=== PATIENT | female | born 1970 | race Caucasian/White ===

== ENCOUNTER 2020-08-29 16:18 | Outpatient (REF) | payer BC, SELFPAY ==
--- NOTE | ~2020-08-29 | MM_ITS ---
EXAMINATION: MM SCREENING DIGITAL BREAST TOMOSYNTHESIS, BILATERAL CLINICAL INFORMATION: History focal left DCIS 2009. Due for yearly exam. COMPARISON: Mammography: 07/04/2019, 05/24/2018, and prior studies dating back to 11/21/2009 TECHNIQUE: Digital breast tomosynthesis is performed in both the craniocaudal and mediolateral oblique views along with computer-aided detection (CAD). Synthesized 2D images are generated from the tomosynthesis. FINDINGS: There are scattered areas of fibroglandular density (ACR BI-RADS breast composition Category b). The right breast is unremarkable. There is no developing density or interval mass or architectural abnormality. Again, there is incidental intramammary node posterior upper outer quadrant. Neither breast shows abnormal calcifications. The axilla and skin contours are unremarkable. The left CC view has asymmetric density posterior outer quadrant, 12.4 cm from nipple. Over time, there is involution/decreased density of the adjacent tissue and this finding may represent incompletely compressed remaining fibroglandular tissue. Patient will be recalled to further characterize. MM/MM tomosynthesis screening BI IMPRESSION: 1. Left: Asymmetric density posterior outer left breast on CC view, possibly incompletely compressed glandular tissue. 2. Right: No mammographic evidence of malignancy. ASSESSMENT: BI-RADS 0: Incomplete - Need Additional Imaging Evaluation RECOMMENDATION: 1. Additional views of the left breast (3-D rolled CC x2, 3-D spot CC). 2. Targeted ultrasound if warranted after review of the additional views. 3. Radiology department staff will contact the patient for additional imaging. This patient's information was entered into a reminder system with a target due date for their next mammogram.
== END 2020-08-29 16:19 | disposition home or self-care (01) ==
LOC: HO.MAMMO 16:18
PROVIDERS: Visit Provider Internal Medicine
DX: Z12.31 Encounter for screening mammogram for malignant neoplasm of breast (principal)
CPT/HCPCS: 77063; 77067

== ENCOUNTER 2021-03-24 23:54 | Emergency (ER) | payer BC, SELFPAY ==
[2021-03-25 03:09] VITALS: BP 154/94; PULSE 129; RESP 20; TEMP 36.9; O2SAT 98; BMI 25.9
--- NOTE | 2021-03-25 03:15 | ECG_ITS ---
Test Reason : UTI Blood Pressure : / mmHG Vent. Rate : 096 BPM Atrial Rate : 096 BPM P-R Int : 158 ms QRS Dur : 072 ms QT Int : 346 ms P-R-T Axes : 074 039 052 degrees QTc Int : 437 ms Normal sinus rhythm Possible Left atrial enlargement Borderline ECG No previous ECGs available Referred By: Charlene Vogel Electronically Signed By:PAULO ISAAC
[2021-03-25 03:54] LABS: Appearance Urine HAZY; Color Urine ORANGE; Glucose Urine UA 100 MG/DL (NEG); Leukocyte Esterase Urine TRACE (NEG); Nitrite Urine POS (NEG); PH 5.5 (5.0-8.0); Specific Gravity - Urine 1.015 (1.005-1.025); UACC Culture Trigger YES; Urine Blood NEG (NEG); Urine Ketones NEG (NEG); Urine Protein 1+ MG/DL (NEG-TRACE)
[2021-03-25 04:02] LABS: Bacteria Urine TRACE /LPF; Mucus Urine 1+ /LPF; RBC Urine 0 /HPF (0); Squamous Epithelial Cell Urine 2+ /LPF
--- NOTE | 2021-03-25 04:09 | ED.GENADULT ---
HPI - General Adult General Chief complaint: General Medical Stated complaint: UTI Time Seen by Provider: 03/25/21 03:15 Source: patient Mode of arrival: ambulatory History of Present Illness HPI narrative: 51-year-old female presents with significant urethral pain and burning and states that she was seen earlier by urgent care and diagnosed with the UTI for which she has taken pyridium as well as the prescribed antibiotics, but states that the pain has not improved. Otherwise, patient has no acute complaints of fever, chills, nausea, vomiting. Related Data Home Medications Medication Instructions Recorded Confirmed estradiol 10 mcg vaginal tablet 10 mcg VAGINAL 2XW 11/08/20 11/08/20 (Yuvafem) nitrofurantoin 1 cap PO DAILY PRN 11/08/20 11/08/20 monohydrate/macrocrystals 100 mg capsule omeprazole 20 mg capsule,delayed 20 mg PO DAILY 11/08/20 11/08/20 release Previous Rx's Medication Instructions Recorded cholecalciferol (vitamin D3) 50 50 mcg PO DAILY #90 cap 07/20/20 mcg (2,000 unit) capsule acetic acid solution 5% #30 ml 10/31/20 amitriptyline 75 mg tablet 75 mg PO BEDTIME #90 tab 03/19/21 Allergies Allergy/AdvReac Type Severity Reaction Status Date / Time No Known Allergies Allergy Verified 03/25/21 03:08 [No Known Allergies*] Erythromycin AdvReac Unknown GI upset Verified 03/25/21 03:08 Review of Systems Review of Systems: Pertinent positives and negatives as stated in HPI 10 point review of systems is otherwise negative. PMFSH Past Medical History Source: nursing notes reviewed Medical History Generalized anxiety disorder Surgical History Hx of breast biopsy Hx of tonsillectomy Hx of wisdom tooth extraction Family History Family History Father History of vitamin D deficiency H/O mental disorder Hx of anxiety disorder Family history of dyslipidemia Mother Hx of anxiety disorder H/O mental disorder Social History Social History Alcohol intake: never Advance Directives: No Advance Directives Information Provided: Yes Patient : No Physical Exam Vital Signs: Vital Signs: Last Vital Signs Temp 98.4 F 03/25/21 03:09 Pulse 129 H 03/25/21 03:09 Resp 20 03/25/21 03:09 BP 154/94 H 03/25/21 03:09 Pulse Ox 98 03/25/21 03:09 Body Mass Index 25.9 VITAL SIGNS: Reviewed. GENERAL: Well developed, well nourished, in no acute distress. HEAD: Normocephalic/atraumatic EYES: PERRLA, EOMI OROPHARYNX: no oral lesions noted, posterior pharynx clear. No adventitious sounds or accessory muscle use. SpO2<98> CARDIOVASCULAR: Regular rate and rhythm without noted murmurs ABDOMEN: Soft, non-tender, non-distended with bowel sounds. : [Primary [place]] evaluation shows significant erythema and irritation at both the enteritis as well as periurethral, but otherwise no vesicles/ulcerations/evidence to suggest yeast infection NEUROLOGIC: Alert and oriented x 4. Strength and sensation to light touch were grossly intact x 4. Course Course Course Narrative: 51-year-old female with history and clinical presentation consistent with likely UTI and on clinical exam the appearance characteristic of vaginal dryness likely contributing to patient's significant discomfort. Low clinical suspicion for STI. Patient received IV fluids, antibiotics, pain medication and was counseled on vaginal dryness. Medical Decision Making Lab Data Labs: Lab Results 03/25/21 Range/Units 03:35 Urine Color ORANGE Urine Appearance HAZY Urine pH 5.5 (5.0-8.0) Ur Specific [place] 1.015 (1.005-1.025) Urine Protein 1+ H (NEG-TRACE) MG/DL Urine Glucose (UA) 100 H (NEG) MG/DL Urine Ketones NEG (NEG) MG/DL Urine Blood NEG (NEG) Urine Nitrite POS H (NEG) Ur Leukocyte Esterase TRACE H (NEG) Urine RBC 0 (0) /HPF Urine WBC 5-9 H (0-4) /HPF Ur Squamous Epith Cells 2+ /LPF Urine Bacteria TRACE /LPF Urine Mucus 1+ /LPF ECG Data Attestation: I personally reviewed and interpreted this ECG as follows: Prior ECG tracings: not available for review Interpretation: Normal sinus rhythm, HR-96, no STEMI, HI/QRS/QTC are within normal limits. Discharge Plan Discharge Clinical Impression: UTI (urinary tract infection), Vaginal dryness Patient Disposition: Home, Self-Care Instructions: Urinary Tract Infection in Women (ED) Additional Instructions: 1. Resume all medications as prescribed. 2. Recommend Replens? for vaginal dryness 3. Follow-up with your primary care provider in the next 1-2 days. Return to the ER for acute worsening of symptoms. Prescriptions: No Action cholecalciferol (vitamin D3) 50 mcg (2,000 unit) capsule 50 mcg PO DAILY Qty: 90 RF: 5 (DME) acetic acid solution 5% See Rx Instructions .Route .MEDSUPPLY Qty: 30 RF: 0 amitriptyline 75 mg tablet 75 mg PO BEDTIME Qty: 90 RF: 0 omeprazole 20 mg capsule,delayed release(DR/EC) 20 mg PO DAILY RF: 0 nitrofurantoin monohyd/m-cryst 100 mg capsule 1 cap PO DAILY PRNRF: 0 estradiol [Yuvafem] 10 mcg tablet 10 mcg vaginal 2XW RF: 0 Referrals: Michelle Dsouza MD [Primary Care Provider] - 2 days
[2021-03-25] MEDS: Acetaminophen 325 MG TABLET 975 MG PO (05:25)
[2021-03-25] MEDS: Ketorolac Tromethamine 15 MG/ML VIAL IVPUSH (05:26)
[2021-03-25] MEDS: cefTRIAXone sodium 1 GM in 0.9 % Sodium Chloride 50 ML IV (05:26)
== END 2021-03-25 07:07 | disposition home or self-care (01) ==
PROVIDERS: Emergency Provider Student in an Organized Health Care Education/Training Program; PCP Internal Medicine
DX: N39.0 Urinary tract infection, site not specified (principal); N89.8 Other specified noninflammatory disorders of vagina; Z79.899 Other long term (current) drug therapy
CPT/HCPCS: 81001; 87040; 87086; 93005; 96365; 96375; 99284; J0696; J1885

== ENCOUNTER 2021-03-25 16:53 | Outpatient (REF) | payer BC, SELFPAY ==
[2021-03-26 14:11] LABS: Appearance Urine CLEAR; Color Urine YELLOW; Glucose Urine UA NEG (NEG); Leukocyte Esterase Urine TRACE (NEG); Nitrite Urine POS (NEG); UACC Culture Trigger YES; Urine Blood NEG (NEG); Urine Ketones NEG (NEG); Urine Protein NEG (NEG-TRACE)
[2021-03-26 14:43] LABS: RBC Urine 0-2 /HPF (0); Squamous Epithelial Cell Urine TRACE /LPF
== END 2021-03-25 16:54 | disposition home or self-care (01) ==
LOC: HO.LAB 16:53
PROVIDERS: Visit Provider Internal Medicine
DX: N39.0 Urinary tract infection, site not specified (principal)
CPT/HCPCS: 81001; 81003

== ENCOUNTER 2021-03-27 10:03 | Emergency (ER) | payer BC, SELFPAY ==
--- NOTE | ~2021-03-27 | US_ITS ---
EXAMINATION: US PELVIS CLINICAL INFORMATION: Pain. Rule out torsion. COMPARISON: None TECHNIQUE: Ultrasound of the pelvis is performed using both transabdominal and transvaginal transducers along with Doppler. Transvaginal imaging is performed due to inadequate visualization transabdominally. FINDINGS: Uterus: The uterus is retroverted and measures 7.6 x 2.4 x 3.9 cm. The double wall endometrial thickness is 0.8 mm. The uterus is smooth in contour and has normal myometrial echogenicity. There are 2 hypoechoic lesions suggestive of fibroids measuring 0.8 x 0.6 x 0.8 cm in the left uterine body and 0.7 x 0.5 x 0.7 cm in the left fundus. Adnexa: Both ovaries are visualized. There is normal color flow to the adnexa. There is no ovarian torsion. There is no ascites. Right ovary measures 1.6 x 0.9 x 1.4 cm. Left ovary measures 1.6 x 1.1 x 1.9 cm. US/US pelvic ovarian doppler IMPRESSION: Small uterine fibroids. Normal-appearing ovaries. No evidence of torsion.
--- NOTE | ~2021-03-27 | US_ITS ---
EXAMINATION: US PELVIS CLINICAL INFORMATION: Pain. Rule out torsion. COMPARISON: None TECHNIQUE: Ultrasound of the pelvis is performed using both transabdominal and transvaginal transducers along with Doppler. Transvaginal imaging is performed due to inadequate visualization transabdominally. FINDINGS: Uterus: The uterus is retroverted and measures 7.6 x 2.4 x 3.9 cm. The double wall endometrial thickness is 0.8 mm. The uterus is smooth in contour and has normal myometrial echogenicity. There are 2 hypoechoic lesions suggestive of fibroids measuring 0.8 x 0.6 x 0.8 cm in the left uterine body and 0.7 x 0.5 x 0.7 cm in the left fundus. Adnexa: Both ovaries are visualized. There is normal color flow to the adnexa. There is no ovarian torsion. There is no ascites. Right ovary measures 1.6 x 0.9 x 1.4 cm. Left ovary measures 1.6 x 1.1 x 1.9 cm. US/US transvaginal IMPRESSION: Small uterine fibroids. Normal-appearing ovaries. No evidence of torsion.
[2021-03-27 10:41] VITALS: BP 147/97; PULSE 105; RESP 16; TEMP 37.4; O2SAT 99; BMI 27.8
--- NOTE | 2021-03-27 11:30 | ED_ITS ---
HPI - Female Genitourinary General Chief complaint: Urogenital-Female Stated complaint: vaginal burning & pain Time Seen by Provider: 03/27/21 11:11 History of Present Illness HPI Narrative: Patient is a 51-year-old female presents today with having vaginal pain. There is no discharge. Patient was noted to have a possible urinary tract infection on Thursday. Started on Bactrim. Subsequently the vaginal pain that is localized in the vaginal area did not improve. Patient went to her primary physician had a 2nd exam and then was started on ciprofloxacin. Been on that for 2 days. Patient continued to have the pain. She is postmenopausal. Does not think she is . She is not sexually active. Patient denies any fever chills. No coughing or congestion or upper respiratory symptoms. No pain on urination. Patient's denies any change in bowel movement. Patient went to see urgent care again sent in for a possible ultrasound. Patient from home. Related Data Home Medications Medication Instructions Recorded Confirmed estradiol 10 mcg vaginal tablet 10 mcg VAGINAL 2XW 11/08/20 11/08/20 (Yuvafem) omeprazole 20 mg capsule,delayed 20 mg PO DAILY 11/08/20 11/08/20 release Previous Rx's Medication Instructions Recorded cholecalciferol (vitamin D3) 50 50 mcg PO DAILY #90 cap 07/20/20 mcg (2,000 unit) capsule acetic acid solution 5% #30 ml 10/31/20 amitriptyline 75 mg tablet 75 mg PO BEDTIME #90 tab 03/19/21 ciprofloxacin HCl 500 mg tablet 500 mg PO Q12H #14 tab 03/25/21 clotrimazole-betamethasone 1 1 appl TOPICAL BID #15 g 03/25/21 %-0.05 % topical cream phenazopyridine 99.5 mg tablet 99.5 mg PO TID PRN #6 tab 03/25/21 (Uristat Ultra) lidocaine HCl 4 % topical cream 1 appl TOPICAL BID #30 g 03/26/21 (Aspercreme (lidocaine HCl)) meloxicam 15 mg tablet 15 mg PO DAILY #14 tab 03/26/21 Allergies Allergy/AdvReac Type Severity Reaction Status Date / Time No Known Allergies Allergy Verified 03/26/21 14:19 [No Known Allergies*] Erythromycin AdvReac Unknown GI upset Verified 03/26/21 14:19 Review of Systems Review of Systems: No fever no chills no vomiting no diarrhea All systems reviewed otherwise negative [facility] Past Medical History Attestation statement: The following information was validated with the patient. Medical History Generalized anxiety disorder Surgical History Hx of breast biopsy Hx of tonsillectomy Hx of wisdom tooth extraction Family History Family History Father History of vitamin D deficiency H/O mental disorder Hx of anxiety disorder Family history of dyslipidemia Mother Hx of anxiety disorder H/O mental disorder Social History Social History Alcohol intake: never Advance Directives: No Advance Directives Information Provided: No Patient : No Physical Exam Vital Signs: Vital Signs: Last Vital Signs Temp 99.3 F 03/27/21 10:41 Pulse 101 H 03/27/21 12:27 Resp 16 03/27/21 12:27 BP 141/98 H 03/27/21 12:27 Pulse Ox 99 03/27/21 12:27 Body Mass Index 27.8 Appearance: Alert. Oriented X3. No acute distress. Eyes: Pupils equal, round and reactive to light. ENT: Pharynx normal. Neck: Normal inspection. Neck supple. No lymph nodes noted. No crepitus CVS: Normal heart rate and rhythm. Pulses normal. Normal S1 and S2 Respiratory: No respiratory distress. Breath sounds normal. No Wheezing. No rales Abdomen: Soft and nontender. No rigidity. No distention. good BS x4 Skin: Skin warm and dry. Normal skin color. Normal skin turgor. Exam is of the genitalia done with Nurse Margaret present. There is no gross external lesion noted in the labia majora labia minora. There is no vaginal discharge noted. Extremities: No lower extremity edema. Neurovascular intact to all extremities. No Lacerations. No Rash Neuro: Oriented X 3. No motor deficit. No sensory deficit. Moving all extermities. No slurred speech MDM - Female Genitourinary MDM Narrative Medical decision making narrative: Patient complaining of vaginal pain. White count is normal electrolyte is normal. Patient left prior to full evaluation can be done bladder scan showed postvoid 200 cc no gross retention. Patient had ultrasound done she did not wait for the results but it did not show any evidence of torsion. She has follow-up with OBGYN. She is in stable condition. Lab Data Attestation: I reviewed the patient's lab results. Result diagrams: 03/27/21 11:57 03/27/21 11:57 Labs: Lab Results 03/27/21 03/27/21 03/27/21 Range/Units 11:44 11:45 11:57 WBC 7.4 (4.8-10.8) X10*3/uL RBC 4.81 (4.20-5.50) X10*6/uL Hgb 14.9 (12.0-16.0) g/dl Hct 43.6 (37-47) % MCV 90.6 (80-98) fL MCH 31.0 (27.0-33.0) pg MCHC 34.2 (31.0-35.0) g/dl RDW 12.9 (11.0-16.0) % Plt Count 291 (160-400) X10*3/uL MPV 9.8 (9.4-12.3) fL Immature Gran % (Auto) 0.3 (0.0-0.4) % Neut % (Auto) 68.1 (45-73) % Lymph % (Auto) 24.0 (20-40) % [place] % (Auto) 5.7 (2-11) % Eos % (Auto) 1.2 (0-4) % Baso % (Auto) 0.7 (0-2) % Lymph # (Auto) 1.8 (1.2-4.9) X10*3/uL [place] # (Auto) 0.4 (0.1-1.2) X10*3/uL Eos # (Auto) 0.1 (0.0-0.4) X10*3/uL Baso # (Auto) 0.1 (0.0-0.2) X10*3/uL Abs Immat Gran (auto) 0.02 (0.00-0.03) X10*3/uL Absolute Neuts (auto) 5.0 (2.0-8.3) X10*3/uL Absolute Nucleated RBC 0.000 (0.0-0.012) X10*3/uL Nucleated RBC % (auto) 0.0 (0.0-0.2) /100WBC Sodium (135-145) mmol/L Potassium (3.3-5.1) mmol/L Chloride (96-108) mmol/L Carbon Dioxide (22-29) mmol/L Anion Gap (12-20) BUN (9-16) mg/dL Creatinine (0.5-1.4) mg/dL Estim Creat Clear Calc Estimated GFR Random Glucose (60-115) mg/dL Calcium (8.4-10.2) mg/dL Total Bilirubin (0.0-1.0) mg/dL AST (5-31) U/L ALT (0-31) U/L Alkaline Phosphatase (39-117) U/L Total Protein (6.5-8.0) g/dL Albumin (3.5-5.0) g/dL Urine Color YELLOW Urine Appearance HAZY Urine pH 6.0 (5.0-8.0) Ur Specific [place] 1.010 (1.005-1.025) Urine Protein NEG (NEG-TRACE) MG/DL Urine Glucose (UA) NEG (NEG) MG/DL Urine Ketones NEG (NEG) MG/DL Urine Blood NEG (NEG) Urine Nitrite POS H (NEG) Ur Leukocyte Esterase NEG (NEG) Urine RBC 0 (0) /HPF Urine WBC 1-4 (0-4) /HPF Ur Squamous Epith Cells TRACE /LPF Urine Bacteria TRACE /LPF Chlam trachomat DNA PCR NOT DETECTED (Not Detect.) N.gonorrhoeae DNA (PCR) NOT DETECTED (Not Detect.) 03/27/21 Range/Units 11:57 WBC (4.8-10.8) X10*3/uL RBC (4.20-5.50) X10*6/uL Hgb (12.0-16.0) g/dl Hct (37-47) % MCV (80-98) fL MCH (27.0-33.0) pg MCHC (31.0-35.0) g/dl RDW (11.0-16.0) % Plt Count (160-400) X10*3/uL MPV (9.4-12.3) fL Immature Gran % (Auto) (0.0-0.4) % Neut % (Auto) (45-73) % Lymph % (Auto) (20-40) % [place] % (Auto) (2-11) % Eos % (Auto) (0-4) % Baso % (Auto) (0-2) % Lymph # (Auto) (1.2-4.9) X10*3/uL [place] # (Auto) (0.1-1.2) X10*3/uL Eos # (Auto) (0.0-0.4) X10*3/uL Baso # (Auto) (0.0-0.2) X10*3/uL Abs Immat Gran (auto) (0.00-0.03) X10*3/uL Absolute Neuts (auto) (2.0-8.3) X10*3/uL Absolute Nucleated RBC (0.0-0.012) X10*3/uL Nucleated RBC % (auto) (0.0-0.2) /100WBC Sodium 140 (135-145) mmol/L Potassium 4.0 (3.3-5.1) mmol/L Chloride 107 (96-108) mmol/L Carbon Dioxide 25 (22-29) mmol/L Anion Gap 12 (12-20) BUN 11 (9-16) mg/dL Creatinine 0.89 (0.5-1.4) mg/dL Estim Creat Clear Calc 79.9 Estimated GFR > 60 Random Glucose 108 (60-115) mg/dL Calcium 9.5 (8.4-10.2) mg/dL Total Bilirubin 0.6 (0.0-1.0) mg/dL AST 33 H (5-31) U/L ALT 26 (0-31) U/L Alkaline Phosphatase 108 (39-117) U/L Total Protein 7.1 (6.5-8.0) g/dL Albumin 4.5 (3.5-5.0) g/dL Urine Color Urine Appearance Urine pH (5.0-8.0) Ur Specific [place] (1.005-1.025) Urine Protein (NEG-TRACE) MG/DL Urine Glucose (UA) (NEG) MG/DL Urine Ketones (NEG) MG/DL Urine Blood (NEG) Urine Nitrite (NEG) Ur Leukocyte Esterase (NEG) Urine RBC (0) /HPF Urine WBC (0-4) /HPF Ur Squamous Epith Cells /LPF Urine Bacteria /LPF Chlam trachomat DNA PCR (Not Detect.) N.gonorrhoeae DNA (PCR) (Not Detect.) Discharge Plan Discharge Clinical Impression: Vaginitis Patient Disposition: Elopement Prescriptions: No Action cholecalciferol (vitamin D3) 50 mcg (2,000 unit) capsule 50 mcg PO DAILY Qty: 90 RF: 5 (DME) acetic acid solution 5% See Rx Instructions .Route .MEDSUPPLY Qty: 30 RF: 0 amitriptyline 75 mg tablet 75 mg PO BEDTIME Qty: 90 RF: 0 omeprazole 20 mg capsule,delayed release(DR/EC) 20 mg PO DAILY RF: 0 estradiol [Yuvafem] 10 mcg tablet 10 mcg vaginal 2XW RF: 0 ciprofloxacin HCl 500 mg tablet 500 mg PO Q12H Qty: 14 RF: 0 Uristat Ultra 99.5 mg tablet 99.5 mg PO TID PRN (Reason: cystitis) Qty: 6 RF: 0 clotrimazole-betamethasone 1-0.05 % cream 1 appl topical BID Qty: 15 RF: 0 lidocaine HCl [Aspercreme (lidocaine HCl)] 4 % cream 1 appl topical BID Qty: 30 RF: 0 meloxicam 15 mg tablet 15 mg PO DAILY Qty: 14 RF: 0 Interventions: ED Discharge Assessment Last Done: 03/27/21 12:37 Discharge Date/Time: 03/27/21 12:38
[2021-03-27 11:52] LABS: Appearance Urine HAZY; Color Urine YELLOW; Glucose Urine UA NEG (NEG); Leukocyte Esterase Urine NEG (NEG); Nitrite Urine POS (NEG); UACC Culture Trigger YES; Urine Blood NEG (NEG); Urine Ketones NEG (NEG); Urine Protein NEG (NEG-TRACE)
[2021-03-27 12:02] LABS: Bacteria Urine TRACE /LPF; RBC Urine 0 /HPF (0); Squamous Epithelial Cell Urine TRACE /LPF
[2021-03-27 12:02] LABS: MANUAL DIFF FLAG NO
[2021-03-27 12:07] LABS: Basophils Absolute Auto 0.1 X10*3/uL (0.0-0.2); Basophils Percent Auto 0.7 % (0-2); Eosinophils Absolute Auto 0.1 X10*3/uL (0.0-0.4); Eosinophils Percent Auto 1.2 % (0-4); Hematocrit 43.6 % (37-47); Hemoglobin 14.9 g/dl (12.0-16.0); Imm Gran Abs Auto 0.02 X10*3/uL (0.00-0.03); Imm Gran Pct Auto 0.3 % (0.0-0.4); Lymphocytes Absolute Auto 1.8 X10*3/uL (1.2-4.9); Mean Corpuscular HGB Conc 34.2 g/dl (31.0-35.0); Mean Corpuscular Volume 90.6 fL (80-98); Mean Platelet Volume 9.8 fL (9.4-12.3); Monocytes Absolute Auto 0.4 X10*3/uL (0.1-1.2); Monocytes Percent Auto 5.7 % (2-11); Neutrophils Percent Auto 68.1 % (45-73); Platelet Count 291 X10*3/uL (160-400); Red Blood Count 4.81 X10*6/uL (4.20-5.50); Red Cell Distribution Width 12.9 % (11.0-16.0); White Blood Count 7.4 X10*3/uL (4.8-10.8)
[2021-03-27 12:21] LABS: Alanine Aminotransferase 26 U/L (0-31); Albumin Level 4.5 g/dL (3.5-5.0); Alkaline Phosphatase 108 U/L (39-117); Anion Gap 12 (12-20); Aspartate Amino Transferase 33 U/L (5-31); Bilirubin Total 0.6 mg/dL (0.0-1.0); Blood Urea Nitrogen 11 mg/dL (9-16); Calcium 9.5 mg/dL (8.4-10.2); Carbon Dioxide 25 mmol/L (22-29); Chloride 107 mmol/L (96-108); Creatinine Clr Calc Pharmacy 79.9; Estimated Glomerular Filt Rate > 60; Glucose Random 108 mg/dL (60-115); Sodium 140 mmol/L (135-145); Total Protein 7.1 g/dL (6.5-8.0)
[2021-03-27 12:27] VITALS: BP 141/98; PULSE 101; RESP 16; O2SAT 99
--- NOTE | 2021-03-27 12:28 | PC.NURSE ---
PT IS VERY INDECISIVE, FIRST WANTED TO GO HOME AND FOLLOW UP WITH OBGYN, THEN WANTED TESTING DONE, PT FINALLY DECIDED TO HAVE ULTRASOUND DONE LAB WORK AND URINE TESTING. RETURNED FROM ULTRASOUND AND WANTED TO LEAVE PROVIDER NELSON AWARE. PT KEEPS CALLING WANTING TEST RESULTS HAVE EXPLAINED MULTIPLE TIMES THAT IT CAN TAKE A FEW HOURS FOR TEST RESULTS TO BE READ BY A RADIOLOGIST AND PT STATES SHE WANT TO LEAVE AND WALKED OUT OF THE ER, DR NELSON ALSO AWARE
[2021-03-27 13:48] LABS: CT PCR NOT DETECTED (Not Detect.); NG PCR NOT DETECTED (Not Detect.)
== END 2021-03-27 12:38 | disposition left against medical advice (07) ==
PROVIDERS: Emergency Provider Emergency Medicine Emergency Medical Services; PCP Internal Medicine
DX: N76.0 Acute vaginitis (principal); R30.0 Dysuria; R10.2 Pelvic and perineal pain; Z79.899 Other long term (current) drug therapy
CPT/HCPCS: 36415; 51798; 76830; 80053; 81001; 85025; 87086; 87491; 87591; 93975; 99283

== ENCOUNTER 2022-06-11 15:10 | Outpatient (REF) | payer BC, SELFPAY ==
--- NOTE | ~2022-06-11 | MM_ITS ---
EXAMINATION: MM SCREENING DIGITAL BREAST TOMOSYNTHESIS, BILATERAL CLINICAL INFORMATION: Screening. Asymptomatic. Left lumpectomy for DCIS, 2009. COMPARISON: Mammography: 08/29/2020, 07/04/2019, and multiple prior exams dating back to 2009. TECHNIQUE: Digital breast tomosynthesis is performed in both the craniocaudal and mediolateral oblique views along with computer-aided detection (CAD). Synthesized 2D images are generated from the tomosynthesis. FINDINGS: There are scattered areas of fibroglandular density (ACR BI-RADS breast composition Category b). There is decreased parenchymal density bilateral breasts since prior remote exams. The right breast shows no interval mass or architectural abnormality. Neither breast shows abnormal calcifications. The skin contours are smooth. Left CC has nodular asymmetric density posterior outer breast extending to the posterior film margin on the CC view. There is no appreciable developing density on left MLO view. This is an area previously noted for recall. Patient will be recalled to fully characterize. MM/MM tomosynthesis screening BI IMPRESSION: Left: -Nodular asymmetric density posterior outer left breast on CC view extending to posterior film margin. Right: -No mammographic evidence of malignancy. ASSESSMENT: BI-RADS 0: Incomplete - Need Additional Imaging Evaluation RECOMMENDATION: 1. Additional views of the left breast (spot exaggerated CC, spot MLO). 2. Targeted ultrasound if warranted after review of the additional views. 3. Radiology department staff will contact the patient for additional imaging. This patient's information was entered into a reminder system with a target due date for their next mammogram.
== END 2022-06-11 15:11 | disposition home or self-care (01) ==
LOC: HO.MAMMO 15:10
PROVIDERS: PCP Internal Medicine; Visit Provider Internal Medicine
DX: Z12.31 Encounter for screening mammogram for malignant neoplasm of breast (principal)
CPT/HCPCS: 77063; 77067

== ENCOUNTER 2023-05-29 12:16 | Outpatient (AMB) | payer BC, SELFPAY ==
--- NOTE | 2023-05-29 12:36 | A.OFFPC_ITS ---
<Statement entered by Michelle Dsouza MD - 08/13/25 23:46> This note has been administratively?closed. Vital Signs 05/29/23 12:37 Height 5 ft 7 in Weight 183 lb 2 oz BMI 28.7 BP 138/76 Blood Pressure Location Lt brachial Position Sitting Pulse 90 Pulse Source Pulse Oximeter Pulse Oximetry (%) 98 Oxygen Delivery Method Room Air Intake Visit Reasons: PE Intake Note: pt is here for her PE Allergies erythromycin base Adverse Reaction (Unknown, Verified 05/29/25 10:40) Gastrointestinal Upset Medication List - Last Reconciled 05/29/23 by Michelle Dsouza MD amitriptyline 75 mg PO BEDTIME cholecalciferol (vitamin D3) 50 mcg PO DAILY omeprazole 20 mg PO DAILY Tobacco use date assessed: 05/29/23 Dental Screening Dental Screen Date: 05/29/23 Did you have a dental visit in the last 12 months?: Yes Did you have a dental problem in the last 6 months where you did not have access to dental care?: No Was dental information given to patient?: Patient has dentist HPI PE HPI Details 53-year-old lady here today for her phys ical exam. She is up-to-date with her cervical cancer screening, goes to [facility]. She is due for screening mammogram, has an appointment scheduled for June 17 at [facility]. Declines getting any colon cancer screening test. [facility] Medical History Hypertriglyceridemia History of vitamin D deficiency Heartburn symptom Episodes of decreased attentiveness Generalized anxiety disorder Surgical History Hx of breast biopsy Hx of wisdom tooth extraction Hx of tonsillectomy Family History Father History of vitamin D deficiency H/O mental disorder Hx of anxiety disorder Family history of dyslipidemia Mother Hx of anxiety disorder H/O mental disorder Social History Housing: House Alcohol intake: never Patient Tobacco Use Status: Never used Tobacco e-Cigarette/Vaping Use: Never Used Current occupational status: employed Cognitive needs: No Hearing needs: No Vision needs: Yes Questionnaire PHQ-9 Over the last 2 weeks, how often have you been bothered by any of the following problems? 1. Little interest or pleasure in doing things: not at all 2. Feeling down, depressed, or hopeless: not at all 3. Trouble falling or staying asleep, or sleeping too much: not at all 4. Feeling tired or having little energy: several days 5. Poor appetite or overeating: not at all 6. Feeling bad about yourself - or that you are a failure or have let yourself or your family down: several days 7. Trouble concentrating on things, such as reading the newspaper or watching television: several days 8. Moving or speaking so slowly that other people could have noticed. Or the opposite - being so fidgety or restless that you have been moving around a lot more than usual: not at all 9. Thoughts that you would be better off or of hurting yourself in some way: not at all Total score: 3 Depression Screening Interpretation: Negative Depression Screening Done: Yes 80802 - PHQ-9 Billing: Yes Source: Developed by Drs. Shaquille Downing, Sarah Tian, Danial Norris and colleagues, with an educational murali from [employer]. Thrive Questionnaire Date Thrive assessed: 05/21/22 AUDIT C Alcohol Use Questionnaire (AUDIT-C) 1. How often do you have a drink containing alcohol?: Never Total Score: 0 ANTONIO-7 AMB Questionnaire ANTONIO-7 Date ANTONIO - 7 assessed: 05/21/22 Source: Developed by Drs. Shaquille Downing, Sarah Tian, Danial Norris and colleagues, with an educational murali from [employer]. Physical exam (Primary Care) Vital Signs: Last Vital Signs Pulse 90 05/29/23 12:37 BP 138/76 05/29/23 12:37 Pulse Ox 98 05/29/23 12:37 Oxygen Delivery Method Room Air 05/29/23 12:37 BMI result Body Mass Index 28.7 Tobacco/Smoking Status: Tobacco use Status Tobacco use date assessed 05/29/23 05/29/23 12:41 Patient Tobacco Use Status Never used Tobacco 05/29/23 12:38 e-Cigarette/Vaping Use Never Used 05/29/23 12:38 PHQ-9: PHQ-9 Score PHQ-9: Total score 3 05/29/23 13:31 Depression Screening Interpretation: Negative Thrive Assessment: Date of Thrive Assessment Date Thrive assessed 05/21/22 05/29/23 12:38 Coding Level of Care Code Admin Sign Off/No Billing Diagnoses Heartburn symptom R12 Episodes of decreased attentiveness R68.89 Annual visit for general adult medical examination with abnormal findings Z00.01 History of vitamin D deficiency Z86.39
[2023-05-29 12:37] VITALS: BP 138/76; PULSE 90; O2SAT 98; BMI 28.7
== END 2023-05-29 13:52 | disposition home or self-care (01) ==
PROVIDERS: Visit Provider Internal Medicine
DX: R12 Heartburn (principal); R68.89 Other general symptoms and signs; Z00.01 Encounter for general adult medical examination with abnormal findings; Z86.39 Personal history of other endocrine, nutritional and metabolic disease
CPT/HCPCS: 99499

== ENCOUNTER 2023-07-20 07:42 | Outpatient (REF) | payer BC, SELFPAY ==
--- NOTE | ~2023-07-20 | MM_ITS ---
EXAMINATION: MM SCREENING DIGITAL BREAST TOMOSYNTHESIS, BILATERAL CLINICAL INFORMATION: Screening. Asymptomatic. Left lumpectomy for DCIS in 2009. COMPARISON: Mammography: 06/11/2022, 08/29/2020, 07/04/2019, and multiple prior exams dating back to 2009. TECHNIQUE: Digital breast tomosynthesis is performed in both the craniocaudal and mediolateral oblique views along with computer-aided detection (CAD). Synthesized 2D images are generated from the tomosynthesis. In addition, a 3-D full-field digital left XCC image was obtained. FINDINGS: There are scattered areas of fibroglandular density (ACR BI-RADS breast composition Category b). There is scarring in the inferomedial left breast related to prior lumpectomy. This appears stable. There are no suspicious masses, suspicious grouped calcifications, or areas of architectural distortion in either breast. The parenchymal pattern is stable from prior exams. MM/MM tomosynthesis screening BI IMPRESSION: No mammographic evidence of malignancy. ASSESSMENT: BI-RADS BI-RADS 2 - Benign Findings RECOMMENDATION: Routine annual mammography screening. 1 year F/U This examination should not preclude the clinical evaluation of a suspicious palpable abnormality. This patient's information was entered into a reminder system with a target due date for their next mammogram.
== END 2023-07-20 07:43 | disposition home or self-care (01) ==
LOC: HO.MAMMO 07:42
PROVIDERS: PCP Internal Medicine; Visit Provider Internal Medicine
DX: Z12.31 Encounter for screening mammogram for malignant neoplasm of breast (principal)
CPT/HCPCS: 77063; 77067

== ENCOUNTER → 2023-07-20 07:45 | Outpatient (BNV) | payer BC, SELFPAY | PROVIDERS: PCP Internal Medicine; Visit Provider Radiology Diagnostic Radiology | DX: Z12.31 Encounter for screening mammogram for malignant neoplasm of breast (principal) | CPT/HCPCS: 77063; 77067 ==

== ENCOUNTER 2024-06-01 08:30 | Outpatient (AMB) | payer BC, SELFPAY ==
--- NOTE | 2024-06-01 08:38 | MHC.PC.OV ---
Vital Signs 06/01/24 08:47 Height 5 ft 7 in Weight 177 lb BMI 27.7 BP 122/86 Blood Pressure Location Rt brachial Position Sitting Pulse 93 Pulse Source Pulse Oximeter Pulse Oximetry (%) 97 Oxygen Delivery Method Room Air Intake Visit Reasons: Annual PE Intake Note: Pt is here today for her PE: last mammogram 07/20/23, papsmear 08/28/21, colorguard 05/29/24 Allergies erythromycin base Adverse Reaction (Unknown, Verified 06/01/24 09:08) Gastrointestinal Upset Medication List - Last Reconciled 06/01/24 by Michelle Dsouza MD amitriptyline 75 mg PO BEDTIME cholecalciferol (vitamin D3) 50 mcg PO DAILY omeprazole 20 mg PO DAILY Tobacco use date assessed: 06/01/24 Dental Screening Dental Screen Date: 05/29/23 Did you have a dental visit in the last 12 months?: Yes Did you have a dental problem in the last 6 months where you did not have access to dental care?: Yes Was dental information given to patient?: Patient has dentist HPI Annual PE HPI Details The patient is a 54-year-old female presenting for an annual physical examination. She is up to date with her screening mammogram , sees [facility] Dr. Gia TOLENTINO for her cervical cancer screening and pelvic exam which is done earlier this year per patient. She reports a postmenopausal status since the age of 46. During this time, she has experienced occasional episodes of feeling overheated but denies significant symptoms disrupting her daily life. The patient has been actively managing her weight and has sdone earlier this year and een a reduction from 183 lbs to 177 lbs over the past year through regular exercise, although she notes some limitation due to prior back injuries. She reports a history of anxiety for which she takes amitriptyline primarily to aid with sleep. She denies experiencing any interruptions in her sleep regimen. Additionally, she has a known adverse reaction to erythromycin characterized by rash development. The patient notes a desire to address her varicose veins but currently is not experiencing any symptomatic discomfort from them. - Mammogram was normal, last completed in September of last year. - Has received COVID-19 vaccinations flu vaccine in the past but does not want to get further vaccines, declines Tdap was but has completed her shingles vaccines - Osteoporosis prevention is ongoing with Vitamin D supplementation and regular exercise. - Colonoscopy screening has been discussed and ordered. - Blood work including CBC, electrolytes, and liver function tests performed in 2020 were normal. [facility] Medical History History of vitamin D deficiency Heartburn symptom Episodes of decreased attentiveness Generalized anxiety disorder Surgical History Hx of breast biopsy Hx of wisdom tooth extraction Hx of tonsillectomy Family History Father History of vitamin D deficiency H/O mental disorder Hx of anxiety disorder Family history of dyslipidemia Mother Hx of anxiety disorder H/O mental disorder Social History Housing: House Alcohol intake: never Patient Tobacco Use Status: Never used Tobacco e-Cigarette/Vaping Use: Never Used Current occupational status: employed Cognitive needs: No Hearing needs: No Vision needs: Yes Questionnaire PHQ-9 Over the last 2 weeks, how often have you been bothered by any of the following problems? 1. Little interest or pleasure in doing things: not at all 2. Feeling down, depressed, or hopeless: not at all 3. Trouble falling or staying asleep, or sleeping too much: not at all 4. Feeling tired or having little energy: not at all 5. Poor appetite or overeating: not at all 6. Feeling bad about yourself - or that you are a failure or have let yourself or your family down: not at all 7. Trouble concentrating on things, such as reading the newspaper or watching television: not at all 8. Moving or speaking so slowly that other people could have noticed. Or the opposite - being so fidgety or restless that you have been moving around a lot more than usual: not at all 9. Thoughts that you would be better off or of hurting yourself in some way: not at all Total score: 0 Depression Screening Interpretation: Negative Depression Screening Done: Yes 85232 - PHQ-9 Billing: Yes Source: Developed by Drs. Shaquille Downing, Sarah Tian, Danial Norris and colleagues, with an educational murali from [employer]. Thrive Questionnaire Date Thrive assessed: 06/01/24 I am a: Patient What is your living situation today?: I have a steady place to live Within the past 12 months, did the food you bought not last and you didn't have the money to get more?: Never true Within the past 12 months, did you worry whether your food would run out before you got money to buy more?: Never true Do you have trouble paying for medicines?: No Do you have trouble getting transportation to medical appointments?: No Do you have trouble paying your heating and electricity bill?: No Do you have trouble taking care of your child, family member or friend?: No Do you have trouble with day-to-day activities such as bathing, preparing meals, shopping, managing finances, etc.?: No Are you currently unemployed and looking for a job?: No Are you interested in more education?: No Please select the resources that you would like help with: None Currently or been in a relationship where the following occur: No concerns reported THRIVE Score: 0 AUDIT C Alcohol Use Questionnaire (AUDIT-C) 1. How often do you have a drink containing alcohol?: Monthly or less 2. How many drinks containing alcohol do you have on a typical day when you are drinking?: 1 or 2 3. How often do you have six or more drinks on one occasion?: Never Total Score: 1 ANTONIO-7 AMB Questionnaire ANTONIO-7 Date ANTONIO - 7 assessed: 06/01/24 Feeling nervous, anxious, or on edge: 0 = Not at all Not being able to stop or control worryin = Not at all Worrying too much about different things: 0 = Not at all Trouble relaxin = Not at all Being so restless that it is hard to sit still: 0 = Not at all Becoming easily annoyed or irritable: 0 = Not at all Feeling afraid as if something awful might happen: 0 = Not at all Total ANTNOIO-7 score (0-4 normal; 5-9 mild; 10-14 moderate; 15-21 severe): 0 Source: Developed by Drs. Shaquille Downing, Sarah Tian, Danial Norris and colleagues, with an educational murali from [employer]. ANTONIO-7 Assessment Billing ANTONIO-7 Assessment Tool: ANTONIO-7 Assessment 89086 Review of Systems Const Denies body aches, Denies fatigue, Denies fever(s), Denies headache(s) and Denies weakness Eyes Details: sees Dr Dodson Denies change in vision, Denies eye discharge and Denies itchy eyes ENT Details: has dental prophylaxis every 6 months Denies dizziness, Denies headache(s), Denies nasal congestion, Denies nasal discharge and Denies sore throat Card Denies chest pain, Denies lightheadedness, Denies palpitations and Denies dyspnea Resp Denies chest congestion, Denies cough, Denies dyspnea and Denies wheezing GI Denies abdominal pain, Denies change in bowel habits and Denies heartburn Denies urinary frequency, Denies dysuria and Denies urinary urgency Musc Reports as per HPI Skin/Breast Denies lesions and Denies rash Neuro Denies dizziness, Denies headache(s) and Denies weakness Psych Reports no additional complaints and Reports as per HPI Endo Denies fatigue, Denies polydipsia, Denies polyuria and Denies palpitations Shailesh/Lymph Denies easy bruising Aller/Immun Denies itchy eyes, Denies seasonal rhinorrhea and Denies wheezing Physical exam (Primary Care) Vital Signs: Last Vital Signs Pulse 93 06/01/24 08:47 BP 122/86 06/01/24 08:47 Pulse Ox 97 06/01/24 08:47 Oxygen Delivery Method Room Air 06/01/24 08:47 BMI result Body Mass Index 27.7 Tobacco/Smoking Status: Tobacco use Status Tobacco use date assessed 06/01/24 06/01/24 08:54 Patient Tobacco Use Status Never used Tobacco 06/01/24 08:39 e-Cigarette/Vaping Use Never Used 06/01/24 08:39 PHQ-9: PHQ-9 Score PHQ-9: Total score 0 06/01/24 08:39 Depression Screening Interpretation: Negative Thrive Assessment: Date of Thrive Assessment Date Thrive assessed 06/01/24 06/01/24 08:39 Currently or been in a relationship where the following occur: No concerns reported Advance Care Planning discussion: Completed/Scanned Date of discussion: 06/01/24 Who was present: Patient Forms completed: Health Care Proxy Time spent: 16-45 minutes Actual minutes spent: 3 Const General: cooperative and no acute distress Nutritional Appearance: overweight Orientation/consciousness: patient oriented x3 Limitations: no limitations HENMT Head: Yes normocephalic and Yes atraumatic Ears: hearing grossly normal bilaterally, external ears normal, TM's normal bilaterally and EAC's normal General nose exam: Normal external nose present and No nasal discharge present Face and sinus: Yes face symmetric Mouth: Normal oral and palatal mucosa present and moist mucous membranes Eyes General: appearance normal, both eyes and all related structures Neck Neck: Yes full ROM, Yes no lymphadenopathy and Yes supple Thyroid: Thyroid normal Chest Breast/axilla palpation: normal palpation of the breasts Resp Effort & Inspection: normal respiratory effort and able to speak in complete sentences Auscultation: clear to auscultation bilaterally Cardio Rate: regular rate Rhythm: regular rhythm Heart sounds: S1 normal heart sound present and S2 normal heart sound present Peripheral pulses: Peripheral pulses 2+ throughout GI Inspection: Yes normal to inspection Palpation (GI): Soft to palpation, nontender, no guarding and no masses Auscultation: normal bowel sounds Other: She sees [facility] for her routine Pap and pelvic exam, last done 2021 with normal findings General: Yes no CVA tenderness and Yes deferred Back/Spine/Pelvis Back: no CVA tenderness and No back tenderness Skin General skin exam: no rashes or lesions noted Neuro General: patient oriented x3, tone normal, moves all extremities, Normal light touch and pain sensation, no focal motor deficits and CN's II-XI intact bilaterally Cranial nerves: Yes CN's II-XII intact bilaterally Gait exam (Neuro): Normal gait present Motor exam (neuro): 5/5 motor strength present throughout Extrem General: Yes full ROM, Yes no joint enlargement, Yes no clubbing, cyanosis or edema, Yes no calf tenderness and Yes normal gait Psych Appearance: grossly normal and well kempt Mental Status: mental status grossly normal Speech and movement: Normal speech and movement present Affect: normal affect Attitude: cooperative Thought process: Normal thought process present Coding Level of Care Code Est Pt Prev Care 40-64y(36001) Diagnoses Annual visit for general adult medical examination with abnormal findings Z00.01 Encounter for screening for malignant neoplasm of colon Z12.11 Generalized anxiety disorder F41.1 History of vitamin D deficiency Z86.39 Encounter for counseling regarding advance directives Z71.89 Additional Codes PHQ-9 - 96702 - PHQ-9 Billing: Yes ([id number]) ANTONIO-7 Assessment Billing - ANTONIO-7 Assessment Tool: ANTONIO-7 Assessment [id number] ([id number]) Vital Signs *Quality* - Advance Care Planning discussion: Completed/Scanned ([id number]) Vital Signs *Quality* - Time spent: 16-45 minutes ([id number]) Assessment & Plan Assessment & Plan (1) Annual visit for general adult medical examination with abnormal findings: Code(s): Z00.01 - Encounter for general adult medical examination with abnormal findings (2) Encounter for screening for malignant neoplasm of colon: Code(s): Z12.11 - Encounter for screening for malignant neoplasm of colon (3) Generalized anxiety disorder: Code(s): F41.1 - Generalized anxiety disorder Category: Medical (4) History of vitamin D deficiency: Code(s): Z86.39 - Personal history of other endocrine, nutritional and metabolic disease Category: Medical (5) Encounter for counseling regarding advance directives: Code(s): Z71.89 - Other specified counseling Plan: Initiated the conversation about Advanced Directives. Advanced Directives help patients prepare for current and future decisions about their medical treatment and place of care. Discussed with patient that it is a process where a patients current condition and prognosis are reviewed, their wishes for information regarding their illness are elicited, and likely medical dilemmas are presented and options discussed. Healthcare proxy form completed today. The form can be amended as needed, reviewed yearly and make changes as needed Plan - Mammogram was normal, last completed in September of last year., she sees [facility] for routine Pap and pelvic exam, last Pap done 2019 - Has received COVID-19 vaccinations, flu shots, and shingles vaccines, but does not want to get a COVID booster or the flu vaccine this year nor does she want to get Tdap - Osteoporosis prevention is ongoing with Vitamin D supplementation and regular walking 4 excess. - Colonoscopy screening has been discussed and ordered. - Blood work including CBC, electrolytes, and liver function tests performed in 2020 were normal. Orders: Orders Alanine Aminotransferase Today F41.1 - Generalized anxiety disorder, R12 - Heartburn, Z00.01 - Encounter for general adult medical examination with abnormal findings, Z71.89 - Other specified counseling, Z86.39 - Personal history of other endocrine, nutritional and metabolic disease Basic Metabolic Panel Fasting Today F41.1 - Generalized anxiety disorder, R12 - Heartburn, Z00.01 - Encounter for general adult medical examination with abnormal findings, Z71.89 - Other specified counseling, Z86.39 - Personal history of other endocrine, nutritional and metabolic disease Lipid Panel Today F41.1 - Generalized anxiety disorder, R12 - Heartburn, Z00.01 - Encounter for general adult medical examination with abnormal findings, Z71.89 - Other specified counseling, Z86.39 - Personal history of other endocrine, nutritional and metabolic disease Vitamin D 25-OH Total Today F41.1 - Generalized anxiety disorder, R12 - Heartburn, Z00.01 - Encounter for general adult medical examination with abnormal findings, Z71.89 - Other specified counseling, Z86.39 - Personal history of other endocrine, nutritional and metabolic disease Aspartate Amino Transferase Today F41.1 - Generalized anxiety disorder, R12 - Heartburn, Z00.01 - Encounter for general adult medical examination with abnormal findings, Z71.89 - Other specified counseling, Z86.39 - Personal history of other endocrine, nutritional and metabolic disease Referrals Gastroenterology Referral Z12.11 - Encounter for screening for malignant neoplasm of colon
[2024-06-01 08:47] VITALS: BP 122/86; PULSE 93; O2SAT 97; BMI 27.7
== END 2024-06-01 09:34 | disposition home or self-care (01) ==
PROVIDERS: PCP Internal Medicine; Visit Provider Internal Medicine
DX: Z00.01 Encounter for general adult medical examination with abnormal findings (principal); Z12.11 Encounter for screening for malignant neoplasm of colon; F41.1 Generalized anxiety disorder; Z86.39 Personal history of other endocrine, nutritional and metabolic disease; Z71.89 Other specified counseling; Z00.00 Encounter for general adult medical examination without abnormal findings

== ENCOUNTER 2024-06-01 08:30 | Outpatient (REF) | payer BC, SELFPAY ==
[2024-06-01 10:55] LABS: Alanine Aminotransferase 32 U/L (0-31); Anion Gap 13 (12-20); Aspartate Amino Transferase 38 U/L (5-31); Blood Urea Nitrogen 11 mg/dL (9-16); Calcium 9.6 mg/dL (8.4-10.2); Carbon Dioxide 24 mmol/L (22-29); Chloride 107 mmol/L (96-108); Cholesterol 238 mg/dL (<200); Estimated Glomerular Filt Rate > 60; Glucose Fasting 92 mg/dL (60-99); HDL Cholesterol 47 mg/dL (>40); LDL Cholesterol Calculated 128 mg/dL (<100); Potassium 4.1 mmol/L (3.3-5.1); Sodium 140 mmol/L (135-145); Triglycerides 319 mg/dL (<150)
[2024-06-01 11:12] LABS: Vitamin D 25-OH Total 79.7 ng/mL (>30)
== END 2024-06-01 08:31 | disposition home or self-care (01) ==
LOC: HO.HMGCLDS 08:30
PROVIDERS: PCP Internal Medicine; Visit Provider Internal Medicine
DX: Z00.00 Encounter for general adult medical examination without abnormal findings (principal); E78.1 Pure hyperglyceridemia; Z13.220 Encounter for screening for lipoid disorders; Z86.39 Personal history of other endocrine, nutritional and metabolic disease; R12 Heartburn; F41.1 Generalized anxiety disorder; Z71.89 Other specified counseling
CPT/HCPCS: 36415; 80048; 80061; 82306; 84450; 84460; 96127

== ENCOUNTER 2024-12-16 08:40 | Outpatient (AMB) | payer OTHER, SELFPAY ==
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
[2024-12-16 08:59] VITALS: BMI 27.7
== END 2024-12-16 10:55 | disposition home or self-care (01) ==
LOC: HO.HNS 08:41
PROVIDERS: PCP Internal Medicine; Visit Provider Physician Assistant
DX: M54.2 Cervicalgia (principal)
CPT/HCPCS: 99204

== ENCOUNTER 2025-05-29 09:27 | Outpatient (AMB) | payer OTHER, SELFPAY ==
[2025-05-29 10:25] VITALS: BP 122/80; PULSE 98; RESP 16; TEMP 36.9; O2SAT 98; BMI 28.7
--- NOTE | 2025-05-29 10:25 | MHC.PC.OV ---
Vital Signs 05/29/25 10:25 Height 5 ft 7 in Weight 183 lb BMI 28.7 BP 122/80 Blood Pressure Location Rt brachial Position Sitting Respiration 16 Pulse 98 Pulse Source Pulse Oximeter Temp 98.4 F Temp Source Oral Pulse Oximetry (%) 98 Oxygen Delivery Method Room Air Intake Visit Reasons: Annual PE Intake Note: Pt is here today for her PE: last mammogram 07/20/23, papsmear 08/28/21, colonoscopy 05/29/24 Saw Setter Required: No Allergies erythromycin base Adverse Reaction (Unknown, Verified 05/29/25 10:40) Gastrointestinal Upset Medication List - Last Reconciled 05/29/25 by Michelle Dsouza MD amitriptyline 75 mg PO BEDTIME cholecalciferol (vitamin D3) 50 mcg PO DAILY omeprazole 20 mg PO DAILY Tobacco use date assessed: 05/29/25 Dental Screening Dental Screen Date: 05/29/25 HPI Annual PE HPI Details 55-year-old lady with history of hypertriglyceridemia, generalized anxiety disorder, an occasional heartburn symptoms, here today for physical exam. She is due for her screening mammogram, with last mammogram done 07/20/2023 with benign findings. Last cervical cancer screening on record was done 08/28/[address] Hodge at [facility], which showed presence of ASCUS. She is overdue to get her colon cancer screening done. Cologuard kit sent in 2023 was not done Patient states that she goes to [facility] for treatment of chronic neck pain due to cervical disc disease, had radiofrequency ablation done , [facility] Medical History Hypertriglyceridemia History of vitamin D deficiency Heartburn symptom Episodes of decreased attentiveness Generalized anxiety disorder Surgical History Hx of breast biopsy Hx of wisdom tooth extraction Hx of tonsillectomy Family History Father History of vitamin D deficiency H/O mental disorder Hx of anxiety disorder Family history of dyslipidemia Mother Hx of anxiety disorder H/O mental disorder Social History Housing: House Alcohol intake: never Patient Tobacco Use Status: Never used Tobacco e-Cigarette/Vaping Use: Never Used Current occupational status: employed Cognitive needs: No Hearing needs: No Vision needs: Yes Female Reproductive History Menstrual Menopause type: natural Questionnaire PHQ-9 Over the last 2 weeks, how often have you been bothered by any of the following problems? 1. Little interest or pleasure in doing things: not at all 2. Feeling down, depressed, or hopeless: not at all 3. Trouble falling or staying asleep, or sleeping too much: not at all 4. Feeling tired or having little energy: not at all 5. Poor appetite or overeating: not at all 6. Feeling bad about yourself - or that you are a failure or have let yourself or your family down: not at all 7. Trouble concentrating on things, such as reading the newspaper or watching television: not at all 8. Moving or speaking so slowly that other people could have noticed. Or the opposite - being so fidgety or restless that you have been moving around a lot more than usual: not at all 9. Thoughts that you would be better off or of hurting yourself in some way: not at all Total score: 0 Depression Screening Interpretation: Negative Depression Screening Done: Yes 14521 - PHQ-9 Billing: Yes Source: Developed by Drs. Shaquille Downing, Sarah Tian, Danial Norris and colleagues, with an educational murali from [employer]. Thrive Questionnaire Date Thrive assessed: 05/22/25 I am a: Patient What is your living situation today?: I have a steady place to live Within the past 12 months, did the food you bought not last and you didn't have the money to get more?: Never true Within the past 12 months, did you worry whether your food would run out before you got money to buy more?: Never true Do you have trouble paying for medicines?: No Do you have trouble getting transportation to medical appointments?: No Do you have trouble paying your heating and electricity bill?: No Do you have trouble taking care of your child, family member or friend?: No Do you have trouble with day-to-day activities such as bathing, preparing meals, shopping, managing finances, etc.?: No Are you currently unemployed and looking for a job?: No Are you interested in more education?: No Please select the resources that you would like help with: None Currently or been in a relationship where the following occur: No concerns reported THRIVE Score: 0 AUDIT C Alcohol Use Questionnaire (AUDIT-C) 1. How often do you have a drink containing alcohol?: 2-4 times a month 2. How many drinks containing alcohol do you have on a typical day when you are drinking?: 1 or 2 3. How often do you have six or more drinks on one occasion?: Never Total Score: 2 Score Reviewed/Action Taken: Yes ANTONIO-7 AMB Questionnaire ANTONIO-7 Date ANTONIO - 7 assessed: 05/29/25 Feeling nervous, anxious, or on edge: 0 = Not at all Not being able to stop or control worryin = Not at all Worrying too much about different things: 0 = Not at all Trouble relaxin = Not at all Being so restless that it is hard to sit still: 0 = Not at all Becoming easily annoyed or irritable: 0 = Not at all Feeling afraid as if something awful might happen: 0 = Not at all Total ANTONIO-7 score (0-4 normal; 5-9 mild; 10-14 moderate; 15-21 severe): 0 Source: Developed by Drs. Shaquille Downing, Sarah Tian, Danial Norris and colleagues, with an educational murali from [employer]. ANTONIO-7 Assessment Billing ANTONIO-7 Assessment Tool: ANTONIO-7 Assessment 64984 Review of Systems Const Denies body aches, Denies fatigue, Denies fever(s), Denies headache(s) and Denies weakness Eyes Details: sees Dr Dodson Denies change in vision, Denies eye discharge and Denies itchy eyes ENT Details: has dental prophylaxis every 6 months Denies dizziness, Denies headache(s), Denies nasal congestion, Denies nasal discharge and Denies sore throat Card Denies chest pain, Denies lightheadedness, Denies palpitations and Denies dyspnea Resp Denies chest congestion, Denies cough, Denies dyspnea and Denies wheezing GI Denies abdominal pain, Denies change in bowel habits and Denies heartburn Denies urinary frequency, Denies dysuria and Denies urinary urgency Musc Reports as per HPI Skin/Breast Denies lesions and Denies rash Neuro Denies dizziness, Denies headache(s) and Denies weakness Psych Reports no additional complaints and Reports as per HPI Endo Denies fatigue, Denies polydipsia, Denies polyuria and Denies palpitations Shailesh/Lymph Denies easy bruising Aller/Immun Denies itchy eyes, Denies seasonal rhinorrhea and Denies wheezing Physical exam (Primary Care) Vital Signs: Last Vital Signs Temp 98.4 F 05/29/25 10:25 Pulse 98 05/29/25 10:25 Resp 16 05/29/25 10:25 BP 122/80 05/29/25 10:25 Pulse Ox 98 05/29/25 10:25 Oxygen Delivery Method Room Air 05/29/25 10:25 BMI result Body Mass Index 28.7 Tobacco/Smoking Status: Tobacco use Status Tobacco use date assessed 05/29/25 05/29/25 10:27 Patient Tobacco Use Status Never used Tobacco 05/29/25 10:27 e-Cigarette/Vaping Use Never Used 05/29/25 10:27 PHQ-9: PHQ-9 Score PHQ-9: Total score 0 05/29/25 10:27 Depression Screening Interpretation: Negative Thrive Assessment: Date of Thrive Assessment Date Thrive assessed 05/22/25 05/29/25 10:27 Currently or been in a relationship where the following occur: No concerns reported Const General: cooperative and no acute distress Nutritional Appearance: overweight Orientation/consciousness: patient oriented x3 HENMT Head: Yes normocephalic Ears: hearing grossly normal bilaterally, external ears normal, TM's normal bilaterally and EAC's normal General nose exam: Normal external nose present and No nasal discharge present Face and sinus: Yes face symmetric Mouth: Normal oral and palatal mucosa present and moist mucous membranes Eyes General: appearance normal, both eyes and all related structures Neck Neck: Yes full ROM, Yes no lymphadenopathy and Yes supple Thyroid: Thyroid normal Chest Breast/axilla palpation: normal palpation of the breasts Resp Effort & Inspection: normal respiratory effort and able to speak in complete sentences Auscultation: clear to auscultation bilaterally Cardio Rate: regular rate Rhythm: regular rhythm Heart sounds: S1 normal heart sound present and S2 normal heart sound present Peripheral pulses: Peripheral pulses 2+ throughout GI Inspection: Yes normal to inspection Palpation (GI): Soft to palpation, nontender, no guarding and no masses Auscultation: normal bowel sounds Other: She sees [facility] for her routine Pap and pelvic exam, last done 2021 with normal findings General: Yes no CVA tenderness and Yes deferred Back/Spine/Pelvis Back: no CVA tenderness and No back tenderness Skin General skin exam: no rashes or lesions noted Neuro General: patient oriented x3, tone normal, moves all extremities, Normal light touch and pain sensation, no focal motor deficits and CN's II-XI intact bilaterally Cranial nerves: Yes CN's II-XII intact bilaterally Gait exam (Neuro): Normal gait present Motor exam (neuro): 5/5 motor strength present throughout Extrem General: Yes full ROM, Yes no joint enlargement, Yes no clubbing, cyanosis or edema, Yes no calf tenderness and Yes normal gait Psych Appearance: grossly normal and well kempt Mental Status: mental status grossly normal Speech and movement: Normal speech and movement present Affect: normal affect Coding Level of Care Code Est Pt Prev Care 40-64y(16612) Diagnoses Annual visit for general adult medical examination with abnormal findings Z00.01 Generalized anxiety disorder F41.1 Hypertriglyceridemia E78.1 History of vitamin D deficiency Z86.39 Heartburn symptom R12 Neck pain M54.2 Bilateral hip pain M25.551; M25.552 Additional Codes ANTONIO-7 Assessment Billing - ANTONIO-7 Assessment Tool: ANTONIO-7 Assessment 34810 ([id number]) PHQ-9 - 30630 - PHQ-9 Billing: Yes ([id number]) Assessment & Plan Assessment & Plan (1) Annual visit for general adult medical examination with abnormal findings: Code(s): Z00.01 - Encounter for general adult medical examination with abnormal findings Plan: Will check appropriate labs. Recommended dental visit every 6 months and regular eye exams, at least every 2 years. Take adequate calcium in diet and vitamin-D 3 at 2000 IU per cap once a day, in addition to weight-bearing exercises to help maintain good muscle tone and weight control. Instructed to do self-breast exam, and recommended to get yearly mammogram, which is overdue, patient states he will call [facility] to schedule mammogram appointment. Cologuard test ordered. Goes to [facility] for routine Pap and pelvic exam, states that she had 1 this year will get copy of results. Patient states she already received her flu shot from the pharmacy, up-to-date with her shingles vaccine, does not want to get any COVID booster. Cologuard test again ordered (2) Generalized anxiety disorder: Code(s): F41.1 - Generalized anxiety disorder Category: Medical Plan: Takes amitriptyline as needed (3) Hypertriglyceridemia: Code(s): E78.1 - Pure hyperglyceridemia Category: Medical Plan: Fasting lipid panel ordered, reinforced importance of following a low-cholesterol diet and getting regular exercise. (4) History of vitamin D deficiency: Code(s): Z86.39 - Personal history of other endocrine, nutritional and metabolic disease Category: Medical Plan: Will check vitamin-D level (5) Heartburn symptom: Code(s): R12 - Heartburn Category: Medical Plan: Takes omeprazole as needed (6) Neck pain: Code(s): M54.2 - Cervicalgia Category: Medical Plan: Currently followed at [facility], just had rate with a frequently ablation in cervical spine. (7) Bilateral hip pain: Code(s): M25.551 - Pain in right hip; M25.552 - Pain in left hip Plan: Prescription sent for meloxicam 7.5 mg per tablet to take once a day as needed for hip pain. Orders: Orders Aspartate Amino Transferase Today E78.1 - Pure hyperglyceridemia, F41.1 - Generalized anxiety disorder, Z86.39 - Personal history of other endocrine, nutritional and metabolic disease Alanine Aminotransferase Today E78.1 - Pure hyperglyceridemia, F41.1 - Generalized anxiety disorder, Z86.39 - Personal history of other endocrine, nutritional and metabolic disease Basic Metabolic Panel Fasting Today E78.1 - Pure hyperglyceridemia, F41.1 - Generalized anxiety disorder, Z86.39 - Personal history of other endocrine, nutritional and metabolic disease Lipid Panel Today E78.1 - Pure hyperglyceridemia, F41.1 - Generalized anxiety disorder, Z86.39 - Personal history of other endocrine, nutritional and metabolic disease Vitamin D 25-OH Total Today E78.1 - Pure hyperglyceridemia, F41.1 - Generalized anxiety disorder, Z86.39 - Personal history of other endocrine, nutritional and metabolic disease Referrals Cologuard Test Z12.11 - Encounter for screening for malignant neoplasm of colon, Z12.12 - Encounter for screening for malignant neoplasm of rectum Medications: New meloxicam 7.5 mg PO DAILY 30 tabs 0RF Hip pain
== END 2025-05-29 11:13 | disposition home or self-care (01) ==
LOC: HO.HMCC 09:28
PROVIDERS: PCP Internal Medicine; Visit Provider Internal Medicine
DX: Z00.01 Encounter for general adult medical examination with abnormal findings (principal); F41.1 Generalized anxiety disorder; E78.1 Pure hyperglyceridemia; Z86.39 Personal history of other endocrine, nutritional and metabolic disease; R12 Heartburn; M54.2 Cervicalgia; M25.551 Pain in right hip; M25.552 Pain in left hip

== ENCOUNTER → 2025-05-29 09:27 | Outpatient (BNVA) | payer OTHER, SELFPAY | PROVIDERS: PCP Internal Medicine; Visit Provider Internal Medicine | DX: Z00.01 Encounter for general adult medical examination with abnormal findings (principal); F41.1 Generalized anxiety disorder; E78.1 Pure hyperglyceridemia; R12 Heartburn; M54.2 Cervicalgia; M25.511 Pain in right shoulder; M25.552 Pain in left hip; Z86.39 Personal history of other endocrine, nutritional and metabolic disease | CPT/HCPCS: 96127 ==